=== PATIENT | female | born 1965 | race Caucasian/White ===

== ENCOUNTER 2020-12-06 19:50 | Emergency (ER) | payer SELFPAY ==
--- NOTE | ~2020-12-06 | XR_ITS ---
XR shoulder LT min 2V DATE: 12/06/2020 20:18 INDICATION: Left shoulder pain TECHNIQUE: AP and Neer views COMPARISON: None FINDINGS: There is an accessory ossicle of the acromion process of the scapula versus less likely fra cture. Normal alignment at the acromioclavicular and glenohumeral joints. No fracture or dislocation of the left shoulder is detected otherwise. IMPRESSION: Accessory ossicle versus fracture of the acromion process; no evidence of dislocation Reviewed, dictated and finalized at location A. IMPRESSION: Accessory ossicle versus fracture of the acromion process; no evide nce of dislocation
--- NOTE | 2020-12-06 19:54 | ED.GENADULT ---
HPI - General Adult General Chief complaint: Extremity Injury, Upper Stated complaint: lft shoulder pain Time Seen by Provider: 12/06/20 20:00 Source: patient and RN notes reviewed Mode of arrival: ambulatory Limitations: no limitations History of Present Illness HPI narrative: 55-year-old female presents with concern for acute left shoulder injury. Reports 2 hours prior to arrival she was carrying a sledgehammer, went to handed to her and felt a sudden pain in her left shoulder. She reports the shoulder hurts to move. She reports tenderness at the shoulder joint that radiates down the arm. She denies hearing or feeling any popping, clicking sound.. Reports she took Tylenol denies other intervention. She denies numbness, decrease strength in the left arm distal to the injury. She denies chest pain, shortness of breath. Denies nausea. MD complaint: Shoulder pain Related Data Home Medications Medication Instructions Recorded Confirmed atorvastatin 12/06/20 blood sugar diagnostic [ReliOn 12/06/20 12/06/20 Prime Test Strips] blood-glucose meter [ReliOn Prime 12/06/20 12/06/20 Meter] cyclobenzaprine mg 12/06/20 duloxetine mg PO 12/06/20 hydroxyzine HCl 12/06/20 meclizine mg 12/06/20 spironolactone 12/06/20 zolpidem 12/06/20 Allergies Allergy/AdvReac Type Severity Reaction Status Date / Time acetaminophen Allergy Intermediate ITCHING Verified 12/06/20 20:09 codeine Allergy Intermediate ITCHING Verified 12/06/20 20:09 hydrocodone Allergy Intermediate ITCHING Verified 12/06/20 20:09 meperidine Allergy Intermediate ITCHING Verified 12/06/20 20:09 morphine Allergy Intermediate ITCHING Verified 12/06/20 20:09 oxycodone Allergy Intermediate ITCHING Verified 12/06/20 20:09 propoxyphene Allergy Intermediate ITCHING Verified 12/06/20 20:09 tramadol Allergy Intermediate ITCHING Verified 12/06/20 20:09 Review of Systems Review of Systems: CONSTITUTIONAL: Denies malaise, chills, sweats, or fever. CARDIOVASCULAR: Denies chest pain, palpitations, or edema. RESPIRATORY: Denies cough or dyspnea. GASTROINTESTINAL: Denies nausea SKIN: Denies bruising, swelling, redness, warmth, open skin MUSCULOSKELETAL: Reports left shoulder pain, joint tenderness NEUROLOGIC: Denies numbness, weakness All systems reviewed & are unremarkable except as noted in HPI and below PMFSH Comments At time of signature, agree with nursing past medical, surgical, social and family history. There is no relevant family history pertinent to the presenting complaint Exam Narrative: GENERAL: Well-appearing, well-nourished, and in no acute distress. HEAD: Normocephalic, atraumatic. EYES: PERRLA, sclera clear ENT: Mucous membranes moist. NECK: Supple. CHEST: No respiratory distress. Speaks in full sentences. HEART: Regular rate and rhythm. No murmur heard. Normal peripheral pulses. EXTREMITIES: Left shoulder, arm, hand have normal strength and sensation, limited range of motion. No edema, erythema, ecchymosis. 5/5 strength with lower arm flexion and extension. Normal sensation with sensitivity to light touch and pain. Lateral shoulder tenderness, reproducible pain with range of motion and palpation. No open wounds, no skin tenting, no devitalized tissue or atrophy, no trophic changes, alignment normal, nearby joints and structures intact. Distal pulses palpable and equal bilaterally, skin warm, dry, pink. Capillary refill less than 3 seconds. SKIN: Warm, dry, no visible rash. NEURO: Alert and oriented x3. PSYCH: Normal mood and affect Course Course Emergency Course: Discussed pain management solutions due to patient's allergies. Patient reports she has had an allergic reaction to Vicodin and Demerol and was told not to take any other similar pain medicines. She has never had any problems that she is aware of with hydrocodone. Reports her reaction to Vicodin Demerol were severe itching. She denies any anaphylactic reaction to any medicati
[2020-12-06 19:59] VITALS: BP 105/62; PULSE 87; RESP 16; TEMP 37.4; O2SAT 100
[2020-12-06 20:09] VITALS: BP 105/62; PULSE 87; RESP 16; TEMP 37.4; O2SAT 100
[2020-12-06] MEDS: KETOROLAC (*BKC) 60 MG/2 ML VIAL IM (20:19)
== END 2020-12-06 20:43 | disposition home or self-care (01) ==
PROVIDERS: Emergency Provider Nurse Practitioner; PCP Family Medicine Sports Medicine
DX: S42.125A Nondisplaced fracture of acromial process, left shoulder, initial encounter for closed fracture (principal); X50.9XXA Other and unspecified overexertion or strenuous movements or postures, initial encounter
CPT/HCPCS: 73030; 99213; A4565; G0463; J1885